=== PATIENT | female | born 1950 ===

== ENCOUNTER 2019-06-06 10:37 | Outpatient (CLI) | payer MEDICARE, BC ==
--- NOTE | 2019-06-06 11:52 | RAD ---
CERVICAL SPINE 7 VIEWS: DATE: 06/06/2019: COMPARISON: None. HISTORY: Neck pain for several months, inflammatory spondylopathy. FINDINGS: Open-mouth odontoid view demonstrates a normal-appearing dens and C1 to articulation. Frontal imaging demonstrates prominent multilevel bilateral facet and uncovertebral osteophyte format ion, left greater than right, most prominent at C4-5, C5-6, and C6-7. Oblique imaging demonstrates mild osteophyte encroachment on the left neural foramina at C3-4 and C4- 5. Neutral lateral examination demonstrates no significant anterolisthesis or retrolisthesis. There is disc space narrowing with degenerative endplate change and anterior osteophyte formation at C2-3, C3-4, C5-6, and C6-7. The flexion imaging demonstrates a mild degree of anterolisthesis at C4-5 measuring approximately 2-3 mm. On extension there is mild retrolisthesis at C3-4 measuring 2 mm . The anterolisthesis at C4-5 is not visualized on the extension views. No prevertebral soft tissue swelling. There is degenerative change noted at the atlantoaxial intersp valeria. There is no widening of the atlantoaxial interspace on the neutral, flexion, or extension imaging. IMPRESSION: Degenerative changes of the cervical spine as detailed above. Transcribed Date/Time: 06/06/2019 12:48 PM
== END 2019-06-06 10:38 | disposition home or self-care (01) ==
LOC: BICRAD 10:37
PROVIDERS: ATTEND Internal Medicine Rheumatology
DX: M46.92 Unspecified inflammatory spondylopathy, cervical region (principal); M47.812 Spondylosis without myelopathy or radiculopathy, cervical region
CPT/HCPCS: 72052